=== PATIENT | female | born 1970 | race Hispanic/Latino ===

== ENCOUNTER 2019-03-30 08:20 | Emergency (ER) | payer OTHER ==
--- NOTE | 2019-03-30 09:12 | Emergency Department Report ---
ED Chest Pain HPI - General Chief Complaint: Chest Pain Stated Complaint: CHEST PAIN Time Seen by Provider: 03/30/19 08:31 Source: patient, EMS Mode of arrival: Stretcher Limitations: No Limitations - History of Present Illness Initial Comments: 48-year-old female patient without significant past medical history presents with complaints of left-sided chest pain and racing heart today. She states it occurred around 7:40 AM while driving and that she became short of breath with chest pain and a heart rate of 174 that she noted on her watch. Patient states she then took a nitroglycerin and shoot for aspirin and the pain resolved within minutes. Patient states she has been having episodes of racing heart and chest pain for the past couple of weeks and that on this past Saturday she saw a floor sweeper, Dr. Spear, who performed a stress test and she states the stress test did show some abnormalities and that her floor sweeper recommended for her to have a nuclear stress test and echocardiogram on Saturday. She denies any current chest pain or shortness of breath. She states family history of heart disease in both her mother and twin brother. She denies any hormonal use, history of UT/CVA/DVT/PE/cancer, recent long travel, or leg pain/swelling. MD Complaint: chest pain -: Sudden Onset: during rest Pain Location: left chest Pain Radiation: none Severity scale (0 -10): 9 Quality: pressure Consistency: now resolved Improves With: nitroglycerin re: denies: nausea, vomting, diaphoresis Other Symptoms: denies: cough, fever, syncope Treatments Prior to Arrival: aspirin, nitroglycerin - Related Data On Oral Contraceptives: No Allergies Allergy/AdvReac Type Severity Reaction Status Date / Time Penicillins Allergy Unknown Unknown Verified 03/30/19 10:05 Heart Score - HEART Score History: Moderately suspicious EKG: Normal Age: 45-65 Risk factors: 1-2 risk factors Troponin: < normal limit HEART Score: 3 - Critical Actions Critical Actions: 0-3 pts:0.9-1.7%risk of adverse cardiac event.Candidate for discharge ED Review of Systems ROS: Stated complaint: CHEST PAIN Other details as noted in HPI Constitutional: denies: chills, fever Eyes: denies: vision change Respiratory: denies: cough, orthopnea, shortness of breath, SOB with exertion, SOB at rest Cardiovascular: as per HPI. denies: edema, syncope Endocrine: no symptoms reported Gastrointestinal: denies: abdominal pain, nausea Genitourinary: denies: dysuria Musculoskeletal: denies: back pain Skin: denies: rash, lesions Neurological: denies: headache, weakness, numbness, paresthesias, abnormal gait Psychiatric: denies: anxiety, depression ED Past Medical Hx - Past Medical History Previous Medical History?: Yes Hx Asthma: Yes Additional medical history: tachycardia - Surgical History Past Surgical History?: Yes Additional Surgical History: , tonsils - Social History Smoking Status: Former Smoker ED Physical Exam - General Limitations: No Limitations General appearance: alert, in no apparent distress - Head Head exam: Present: atraumatic, normocephalic - Eye Eye exam: Present: normal appearance - Neck Neck exam: Present: normal inspection - Respiratory Respiratory exam: Present: normal lung sounds bilaterally. Absent: respiratory distress - Cardiovascular Cardiovascular Exam: Present: regular rate, normal rhythm, normal heart sounds. Absent: systolic murmur, diastolic murmur, rubs, gallop - GI/Abdominal GI/Abdominal exam: Present: soft, normal bowel sounds. Absent: distended, tenderness, guarding, rebound, rigid - Rectal Rectal exam: Present: deferred - Extremities Exam Extremities exam: Present: normal inspection. Absent: pedal edema, joint swelling, calf tenderness - Back Exam Back exam: Present: normal inspection - Neurological Exam Neurological exam: Present: alert, oriented X3 - Psychiatric Psychiatric exam: Present: normal affect, normal mood - Skin Skin exam: Present: warm, dry, intact, normal color. Absent: rash ED Course Vital Signs 03/30/19 03/30/19 03/30/19 08:30 10:01 12:13 Temperature 97.4 F L Pulse Rate 76 63 61 Respiratory 18 18 18 Rate Blood Pressure 148/94 Blood Pressure 165/85 116/59 [Right] O2 Sat by Pulse 99 96 Oximetry ED Medical Decision Making - Lab Data Result diagrams: 03/30/19 09:26 03/30/19 09:26 - EKG Data EKG shows normal: sinus rhythm Rate: normal - Radiology Data Radiology results: report reviewed CHEST 1 VIEW INDICATION: Chest Pain. COMPARISON: None FINDINGS: Support devices: None. Heart: Within normal limits. Lungs/Pleura: No acute air space or interstitial disease. Additional findings: None. IMPRESSION: Normal AP chest. - Medical Decision Making Patient here with sudden onset of left-sided chest pain that resolved with aspirin and nitroglycerin this morning. Patient is following with Dr.Gangasani cardiologyubaldo a stress test this past Saturday and has a nuclear stress test scheduled for Saturday along with an echocardiogram and a coronary CT on Saturday. Patient states her chest pain remains resolved. She denies any further chest pain since being here in the ED. Initial and repeat troponin and EKG are without acute findings. Heart score is a 3. Vitals are WNL. Chest x-ray is normal. Spoke with Dr. Spear- states patient okay to f/u in office on to [place] homefor her nuclear stress test. Pt also given option to stay be admitted to hospital today for stress test and further eval-pt states she would like to go home and will f/u as scheduled Saturday. Discussed strict return precautions in great detail with patient who states understanding. Patient informed if her chest pain does return to return to the ED immediately Critical care attestation.: If time is entered above; I have spent that time in minutes in the direct care of this critically ill patient, excluding procedure time. ED Disposition Clinical Impression: Chest pain Qualifiers: Chest pain type: other chest pain Qualified Code(s): R07.89 - Other chest pain Disposition: DC- TO HOME OR SELFCARE Is pt being admited?: No Condition: Stable Instructions: Chest Pain (ED) Additional Instructions: Please follow-up with your floor sweeper tomorrow. If any new or worsened symptoms occur return to the emergency room immediately. Time of Disposition: 12:27
--- NOTE | 2019-03-30 09:35 | XRay Report ---
CHEST 1 VIEW INDICATION: Chest Pain. COMPARISON: None FINDINGS: Support devices: None. Heart: Within normal limits. Lungs/Pleura: No acute air space or interstitial disease. Additional findings: None. IMPRESSION: Normal AP chest. Signer Name: Gilles Mayers Jr, MD Signed: 03/30/2019 9:30 AM Workstation Name: [id number]
[2019-03-30 10:08] LABS: Basophils % (Auto) 0.5 % (0.0-1.8); Eosinophils # (Auto) 0.2 K/mm3 (0.0-0.4); Eosinophils % (Auto) 2.6 % (0.0-4.3); Hematocrit 41.4 % (30.3-42.9); Hemoglobin 14.5 gm/dl (10.1-14.3); Lymphocytes # (Auto) 1.4 K/mm3 (1.2-5.4); Lymphocytes % (Auto) 22.1 % (13.4-35.0); Mean Corpuscular HGB Conc 35 % (30-34); Mean Corpuscular Volume 94 fl (79-97); Monocytes # (Auto) 0.5 K/mm3 (0.0-0.8); Platelet Count 178 K/mm3 (140-440); Red Blood Count 4.42 M/mm3 (3.65-5.03); Red Cell Distribution Width 14.2 % (13.2-15.2)
[2019-03-30 10:32] LABS: BUN/Creatinine Ratio 17; Blood Urea Nitrogen 12 mg/dL (7-17); Calcium 9.2 mg/dL (8.4-10.2); Hemolysis Index 9
[2019-03-30 13:09] VITALS: BP 122/72
== END 2019-03-30 13:09 | disposition home or self-care (01) ==
LOC: ED 08:20
DX: R07.9 Chest pain, unspecified (principal); R00.2 Palpitations; J45.909 Unspecified asthma, uncomplicated
CPT/HCPCS: 36415; 71045; 80048; 84484; 85025; 93005; 93010